=== PATIENT | male | born 1995 | race African-American/Black ===

== ENCOUNTER 2023-05-22 23:00 | Emergency (ER) | payer SELFPAY ==
[2023-05-22 23:05] VITALS: BP 130/92
[2023-05-22 23:19] VITALS: BMI 24.7
[2023-05-22 23:44] LABS: COVID-19 Antigen Negative (Negative)
--- NOTE | 2023-05-22 23:56 | ED.GENMED ---
History of Present Illness
General
Chief Complaint: Throat Problem
Source: patient
Exam Limitations: none
Time Seen by Provider: 05/22/23 23:21
Travel History
Have you had any contact with someone who has COVID-19?: No
Do you have any symptoms of coronavirus? Fever > 100 degrees, chills, cough, shortness of breath, sore throat, loss of taste or smell, muscle aches, or headache?: Yes
Symptoms:: chills, sore throat
History of Present Illness
History of Present Illness:
This is a 28 year old male that comes in with c/o sore throat. State that the started yesterday with fever and a sore throat. States that it was difficulty to swallow. States that he felt occasionally slightly SOB and nauseated. States that he has
been taking Tylenol and Naproxen. Denies any chest pain, abd pain, vomiting, diarrhea, headache, dizziness, urinary burning.
Past History
Past History
ED Past Medical History: Asthma
ED Past Surgical History: None
Social History
Tobacco: Smoker
Alcohol: Occasional
Personal:
Living: with family
Review of Systems
Review of Systems
All Other Systems: ROS reviewed and negative except as documented in HPI and ROS
Constitutional: Reports fever; Denies chills
EENT: Reports sore throat
Respiratory: Reports cough and trouble breathing (Slight)
Cardiac: Denies chest pain
ABD/GI: Reports nausea; Denies abdominal pain, vomiting or diarrhea
: Reports no symptoms; Denies dysuria, frequency or urgency
Musculoskeletal: Reports no symptoms
Skin: Reports no symptoms
Neurological: Reports no symptoms; Denies dizzy or headache
Psychiatric: Reports no symptoms
Phy Exam
General Physical Exam
General Presentation: well appearing and no apparent distress
General age: appears stated age
General Skin: warm and dry
General Habitus: normal
General Mental: alert
General Hydration: appears well hydrated
ENT Exam
ENT Exam: TM's normal, neck supple and pharyngeal erythema (negative for any exudate)
Eye Exam
Eye Exam: EOMI
Cardiovascular Exam
Cardiovascular Exam: regular rate/rhythm, no edema, no murmur and normal peripheral pulses
Pulmonary Exam
Pulmonary Exam: lungs clear, no respiratory distress, no rales, chest non tender, no crackles, no rhonchi, no wheezing and other (Dry cough noted)
Gastrointestinal Exam
Gastrointestinal Exam: normal bowel sounds, non tender, soft, no organomegaly, no pulsatile mass and non distended
Musculoskeletal Exam
Musculoskeletal Exam: full ROM and no edema
Skin Exam
Skin Exam: normal color, warm/dry, no rash and no petechia
Psychiatric Exam
Psychiatric Exam: normal mood/affect
Course
Orders/Labs/Results
Orders:
Orders
05/22/23 23:17
COVID-19 Antigen Urgent
Source: Nasal Swab
Influenza A+B Rapid Molecular Urgent
LUIS Source: Nasal Swab
Specimen Description:
Rapid Strep Group A Urgent
LUIS Source: Throat/Pharynx
Specimen Description:
Date Specimen was Collected: 05/22/23
Time Specimen was Collected: 23:13
05/22/23 23:58
Amoxicillin 875 mg/Clav 125 mg [Augmentin 875 mg/125 mg] 1 tablet PO NOW STA
Negative for COVID and Influenza. rapid strep positive
Vital Signs
Initial and Last Documented VS:
Initial Vital Signs
Temp Pulse Resp BP Pulse Ox
98.5 F 73 20 130/92 94
05/22/23 23:05 05/22/23 23:05 05/22/23 23:05 05/22/23 23:05 05/22/23 23:05
Last Documented Vital Signs
Temp Pulse Resp BP Pulse Ox
98.5 F 73 20 130/92 95
05/22/23 23:05 05/22/23 23:05 05/22/23 23:05 05/22/23 23:05 05/22/23 23:19
MDM/Problems Addressed
Differential Diagnosis Includes:
Strep throat. peritonsillar abscess
MDM/Problems Addressed:
This is a 28 year old male that comes in with c/o sore throat. States that this started yesterday with a fever.
Will get COVID, Influenza and rapid strep.
Explained to patient that he is positive for Strep. Will start patient on antibiotics. Patient can also gargle with warm salt water. Continue with Tylenol or Ibuprofen for fever. Return with any concerns.
Chronic conditions affecting care:
NA
Acute Exacerbation and/or Progression of Chronic Illness:
NA
*Pulse Oximetry
Patient hypoxic: no
*EKG
Interpreted by ED Provider?: NA
Rate: EKG- N/A
*Clinical Specialist Interpretation
Rate: Clinical Specialist- N/A
*Critical Care Note
Total Time (30-74mins, 75-104mins- exclusive of procedures): Not Applicable
ED Attending Note
-
Portions of this chart may have been created with voice recognition software.� Occasional wrong word or��sound alike� substitutions may have occurred due to the inherent limitations of voice recognition software.
Discharge Plan
Departure
Patient Disposition: Home (Routine Discharge)
Date of Disposition: 05/23/23
Time of Disposition: 00:02
Patient with high blood pressure during this ER visit?: Yes
Condition: Good
Covid-19: Negative COVID-19
Discharge Problem:
Strep throat
Instructions: Strep Throat (DC), BLOOD PRESSURE
Prescriptions:
New
amoxicillin-pot clavulanate 875-125 mg tablet
1 tab PO BID Qty: 19 0RF
Activity Restrictions/Additional Instructions:
As discussed, you are negative for COVID and Influenza. You are positive for Strep throat. You have been given your first dose of antibiotic here and a prescription has been sent to your Pharmacy. Please take this as directed until finished. Please
increase your water intake to 8-8oz glasses daily. You may also gargle with warm salt water to help kill the bacteria. Continue with Tylenol or Ibuprofen as needed for any fever. Follow up with the family doctor as needed. IF YOU HAVE ANY OTHER
CONCERNS PLEASE RETURN TO THE EMERGENCY ROOM.
Interventions
Interventions:
*Risk Screen - Suicide Last Done: 05/22/23 23:05
*General Assessment Last Done: 05/22/23 23:05
*Neglect/Abuse Screening Last Done: 05/22/23 23:05
ED- Fall Risk Assessment Last Done: 05/22/23 23:05
*ED COVID-19 Vaccine History Last Done: 05/22/23 23:05
ED-EENT Assessment Last Done: 05/22/23 23:19
ED- Pulmonary Assessment Last Done: 05/22/23 23:19
Discharge Date and Time
Print Language: FRENCH
[2023-05-23] MEDS: AUGMENTIN 875 MG/125 MG 1 TABLET PO (00:22)
== END 2023-05-23 00:30 | disposition home or self-care (01) ==
LOC: EMR 23:00
PROVIDERS: Emergency Medicine; EMERGENCY PHYSICIAN Emergency Medicine
DX: J02.0 Streptococcal pharyngitis (principal); J45.909 Unspecified asthma, uncomplicated; F17.200 Nicotine dependence, unspecified, uncomplicated
CPT/HCPCS: 99283; 87070; 87502; 87811; 87880

== ENCOUNTER 2024-04-15 09:15 | Emergency (ER) | payer OTHER, SELFPAY ==
[2024-04-15 09:28] VITALS: BP 118/80
[2024-04-15 10:01] VITALS: BMI 22.2
--- NOTE | 2024-04-15 10:13 | ED.GENMED ---
History of Present Illness
General
Chief Complaint: Abdominal Symptoms
Time Seen by Provider: 04/15/24 09:58
History of Present Illness
History of Present Illness:
Patient is a 29-year-old man who is otherwise healthy presenting to the emergency department with a bulge in his groin region. Patient states the past 7 weeks he has noted an intermittent bulge to the left groin. He states that when he lays flat
it goes away. However it easily comes back with any movement coughing or bowel movements. He denies any skin changes associated with it. No urinary symptoms. No scrotal swelling. No penile discharge. No issues with his bowel movement. No
nausea vomiting. No known diagnosis of hernia. He states that it is painful intermittently so his fianc�e convinced him to come to the hospital today.
Past History
Past History
ED Past Medical History: Asthma
ED Past Surgical History: None
Social History
Tobacco: Smoker
Alcohol: Occasional
Personal:
Living: with family
Phy Exam
Physical Exam
Physical Exam:
GENERAL: in no acute distress
HEENT: normocephalic, extraocular movements intact, moist oral mucosa
NECK: normal inspection
RESPIRATORY: no respiratory distress, clear to auscultation bilaterally
CARDIOVASCULAR: regular rate and rhythm
ABDOMEN/: soft, non-distended, non-tender to palpation, no rebound or guarding
Chaperoned by YENI Atkins, no palpable bulge present, normal scrotum bilaterally
EXTREMITIES: non-tender, no edema/swelling
NEUROLOGIC: awake and alert, moves all extremities
SKIN: warm
Course
Orders/Labs/Results
Orders:
Orders
04/15/24 10:04
US Groin (Imaging Only) LT Urgent
Comment:
Reason For Exam: inguinal hernia
Vital Signs
Initial and Last Documented VS:
Initial Vital Signs
Temp Pulse Resp BP Pulse Ox
98.4 F 72 16 118/80 98
04/15/24 09:28 04/15/24 09:28 04/15/24 09:28 04/15/24 09:28 04/15/24 09:28
Last Documented Vital Signs
Temp Pulse Resp BP Pulse Ox
98.4 F 72 16 118/80 98
04/15/24 09:28 04/15/24 09:28 04/15/24 09:28 04/15/24 09:28 04/15/24 09:28
MDM/Problems Addressed
Differential Diagnosis Includes:
Patient is a 29-year-old man presenting to the emergency department with a bulge to his left inguinal region that is intermittent. Vitals are unremarkable and on exam there is no palpable bulge present. History and exam does sound consistent with
a hernia that is reducible. We did discuss incarcerated/strangulated hernia. I did discuss outpatient surgical evaluation. After shared decision making we will obtain ultrasound to exclude any other etiologies such as lymphadenopathy though less
likely.
*Critical Care Note
Total Time (30-74mins, 75-104mins- exclusive of procedures): Not Applicable
Update Note
Update Note:
Negative for any obvious inguinal hernia. On reevaluations patient exam remains unchanged. Patient advised to avoid heavy lifting, straining. Strict return precautions given to include a reducible hernia, worsening pain, skin changes. Will
discharge patient at this time.
ED Attending Note
-
Portions of this chart may have been created with voice recognition software.� Occasional wrong word or��sound alike� substitutions may have occurred due to the inherent limitations of voice recognition software.
Discharge Plan
Departure
Patient Disposition: Home (Routine Discharge)
Date of Disposition: 04/15/24
Time of Disposition: 13:06
Patient with high blood pressure during this ER visit?: No
Discharge Problem:
Inguinal hernia
Instructions: Groin hernias
Prescriptions:
No Action
amoxicillin-pot clavulanate 875-125 mg tablet
1 tab PO BID Qty: 19 0RF
Referrals:
[facility] [Provider Group]
Cullen Hawk MD [Active] -
UNKNOWN - PT DOES,NOT KNOW [Family Provider] -
Interventions
Interventions:
*Risk Screen - Suicide Last Done: 04/15/24 09:28
*General Assessment Last Done: 04/15/24 10:01
*Neglect/Abuse Screening Last Done: 04/15/24 09:28
*ED- Fall Risk Assessment Last Done: 04/15/24 10:01
*ED COVID-19 Vaccine History Last Done: 04/15/24 10:01
[id number]-[id number] Assessment Last Done: 04/15/24 10:00
Discharge Date and Time
Print Language: [email or web address]
[2024-04-15 13:21] VITALS: BP 144/78
== END 2024-04-15 13:21 | disposition home or self-care (01) ==
LOC: EMR 09:15
PROVIDERS: EMERGENCY PHYSICIAN Student in an Organized Health Care Education/Training Program
DX: K40.90 Unilateral inguinal hernia, without obstruction or gangrene, not specified as recurrent (principal); F17.200 Nicotine dependence, unspecified, uncomplicated
CPT/HCPCS: 99283; 76882